=== PATIENT | female | born 1960 | race African-American/Black ===

== ENCOUNTER 2019-04-03 11:28 | Emergency (ER) | payer OTHER ==
[~2019-04-03] VITALS: Ht 162.6 cm; Wt 80.7 kg
--- OUTSIDE RECORDS SUMMARY | 2019-04-03 11:31 | XMS REPORT | Clinical Summary ---
Author Author RO[facility] Address Unknown Phone Unavailable Care Team Providers Care Dynamo Repairer Name Role Phone Sharpless PCP Allergies No Known Allergies Medications End Date Status Medication Sig Dispensed Refills Start Date Active promethazine-phenylephrin Take 5 mLs by 150 mL 0 e 6.25-5 mg/5 mL Syrp mouth every 6 7 (six) hours as needed (cough/conges tion). Active LISINOPRIL ORAL Take by 0 mouth. Active simvastatin (ZOCOR) 10 MG Take 10 mg by 0 tablet mouth nightly. Active Problems Not on file Social History Date Tobacco Use Types Packs/Day Years Used Never Smoker Smokeless Tobacco: Never Used Alcohol Use Drinks/Week oz/Week Comments No Sex Assigned at Date Recorded Not on file Industry Job Start Date Occupation Not on file Not on file Not on file Travel End Travel History Travel Start No recent travel history available. Last Filed Vital Signs Not on file Plan of Treatment Not on file Results Not on fileafter 04/02/2018 Insurance Payer Benefit Subscriber ID Type Phone Address Plan / Group [employer] xxxxxxxxxxxxxxx PPO [phone] [id number] POS/PPO/[place] [address] O amily (Home) [place] [address]
--- OUTSIDE RECORDS SUMMARY | 2019-04-03 11:32 | XMS REPORT ---
Author [facility] Address Unknown Phone Unavailable Care Team Providers Care Sales Operations Consultant Name Role Phone Unavailable Unavailable Payers Payer Name Policy Type Policy Number Effective Date Expiration Date Problems This patient has no known problems. Allergies, Adverse Reactions, Alerts Allergy Name Allergy Type Status Severity Reaction(s) Onset Date Inactive Date Treating Clinician Comments No Known Allergies DA Active U 2015-10-12 00:00:00 Medications This patient has no known medications. Results Test Description Test Time Test Comments Text Results Atomic Results Result Comments RAD, CHEST, 1 VIEW, NON DEPT 2017-11-05 13:25:00 Reason for exam:->Dyspnea, coughIs the patient ?->UnknownShould this be performed at the bedside?->No FINAL REPORT LA CHEST History provided: Dyspnea, cough Radiographically normal-appearing heart and lungs. IMPRESSION: Clear chest. Signed: Jun Ortiz Verified Date/Time: 11/05/2017 13:25:38 Reading Location: [facility] Diagnostic Imaging Reading Room - [facility] [phone]
[2019-04-03] MEDS ORDERED: FAMOTIDINE 20 MG/2 ML VIAL IV STA (11:46)
[2019-04-03] MEDS ORDERED: METHYLPREDNISOLONE SOD SUCC 125 MG/2ML VIAL IV ONE (12:00)
[2019-04-03] MEDS ORDERED: FAMOTIDINE 20 MG/2 ML VIAL IV ONE (12:15)
== END 2019-04-03 13:27 | disposition home or self-care (01) ==
LOC: ER 11:28
DX: S00.86XA Insect bite (nonvenomous) of other part of head, initial encounter (principal); S20.369A Insect bite (nonvenomous) of unspecified front wall of thorax, initial encounter; S40.261A Insect bite (nonvenomous) of right shoulder, initial encounter; S50.861A Insect bite (nonvenomous) of right forearm, initial encounter; S60.561A Insect bite (nonvenomous) of right hand, initial encounter; S40.262A Insect bite (nonvenomous) of left shoulder, initial encounter; S50.362A Insect bite (nonvenomous) of left elbow, initial encounter; S50.862A Insect bite (nonvenomous) of left forearm, initial encounter; W57.XXXA Bitten or stung by nonvenomous insect and other nonvenomous arthropods, initial encounter; Y92.018 Other place in single-family (private) house as the place of occurrence of the external cause
CPT/HCPCS: 99283; J2930